=== PATIENT | female | born 1955 | race Caucasian/White ===

== ENCOUNTER 2017-02-19 08:11 | Day surgery (SDC) | payer MEDICARE, OTHER ==
[~2017-02-19] VITALS: Ht 170.2 cm; Wt 61.6 kg
[2017-02-19] VITALS (8 sets, daily range): BP systolic 91–103; BP diastolic 43–69; PULSE 62–92; RESP 15–16; O2SAT 94–98
[~2017-02-19 08:11] MED LIST: AMLO5TAB2 PO; ARIP5TAB5 PO; ASPI-973 PO; BUPR150T9 PO; BUSP10TA2 PO; CARI350T PO; CeFAZolin Inj 2 GM in IV Premix 1 EACH IV SCH; DIAZ2TAB PO; DULO60CA42 PO; HYDR-3825 PO; IBUP200C PO; LABE100T4 PO; LEVO137T24 PO; LOSA50TA37 PO; Lactated Ringer's 1,000 ML IV SCH; OMEP20CA11 PO
[2017-02-19] MEDS ORDERED: Ondansetron 2 mg/mL 2 mL Inj ONE (08:12)
[2017-02-19] MEDS ORDERED: fentaNYL-PF 50 mCg/mL 2 mL Inj ONE (08:12)
[2017-02-19] MEDS ORDERED: EPHEDrine/NS 5 mg/mL 5 mL Syringe ONE (08:12)
[2017-02-19] MEDS ORDERED: Phenylephrine/NS-PF 100 mCg/mL 5 mL Syringe IVPUSH ONE (08:12)
[2017-02-19] MEDS ORDERED: Propofol 10,000 mCg/mL 20 mL Inj ONE (08:12)
[2017-02-19] MEDS ORDERED: MetoCLOpramide 5 mg/mL 2 mL Inj ONE (08:12)
[2017-02-19] MEDS ORDERED: Dexamethasone 4 mg/mL Inj ONE (08:12)
[2017-02-19] MEDS ORDERED: oxyCODONE-Acetamin 5-325 mg Tablet PO PRN (08:25)
[2017-02-19] MEDS ORDERED: Lactated Ringer's 1,000 ML IV ONE (09:31)
[2017-02-19] MEDS ORDERED: Lactated Ringer's 500 ML IV PRN (10:27)
[2017-02-19] MEDS ORDERED: Lactated Ringer's 1,000 ML IV SCH (10:27)
[2017-02-19] MEDS ORDERED: Atropine 0.4 mg/mL Inj IVPUSH PRN (10:30)
[2017-02-19] MEDS ORDERED: Phenylephrine 10,000 mCg/mL Inj IVPUSH PRN (10:30)
[2017-02-19] MEDS ORDERED: Ondansetron 2 mg/mL 2 mL Inj IVPUSH PRN (10:30)
[2017-02-19] MEDS ORDERED: fentaNYL-PF 50 mCg/mL 2 mL Inj IVPUSH PRN (10:30)
[2017-02-19] MEDS ORDERED: HYDROmorphone 1 mg/mL Inj IVPUSH PRN (10:30)
[2017-02-19] MEDS ORDERED: EPHEDrine Sulfate 50 mg/mL Inj IVPUSH PRN (10:30)
[2017-02-19] MEDS ORDERED: MetoCLOpramide 5 mg/mL 2 mL Inj IVPUSH PRN (10:30)
[2017-02-19] MEDS ORDERED: Labetalol 5 mg/mL 4 mL Inj IV PRN (10:30)
--- NOTE | 2017-02-19 10:30 | PCM.HPANE ---
Patient Data Surgeon Admitting Provider: Attending Provider:Luis Felipe Crabtree DO Primary Care Physician:Yamileth Alvares PA-C Other Provider:Gerard Hammonds Anesthesia Reason for Visit Left Shoulder Rotator Cuff Tear Ht/WT & BMI Height (Feet): 5 Height (Inches): 7 Weight (Kilograms): 61.6 Body Mass Index 21.00 Allergies Coded Allergies: No Known Allergies (Verified Allergy, Unknown, 02/16/17) Past Anesthesia History Anesthesia History: Positive for:: Anesthesia Reactions (nausea, vomiting), Denies:: Abnormal Airway, Difficult Intubation, Fam Anesthesia Reaction, Fam Malignant Hypertherm, Malignant Hyperthermia MRSA MRSA: No Medications Blood Thinner: Aspirin Home Meds Incl Beta Jazmine: Yes Reported Medications Diazepam (Valium)2 Mg Tablet2 Mg PO TID PRN For Anxiety 30 Days Ref 0 02/16/17 Levothyroxine (Synthroid)137 Mcg [id number] Mcg PO DAILY Ref 0 02/16/17 Carisoprodol (Soma)350 Mg [id number] Mg PO TID 02/16/17 Omeprazole 20 Mg Capsule.dr20 Mg PO DAILY Ref 0 02/16/17 Losartan Potassium 50 Mg Hwbqxb07 Mg PO BID 02/16/17 Labetalol 100 Mg [id number] Mg PO BID 02/16/17 Ibuprofen 200 Mg [id number] Mg PO QID PRN For Pain Ref 0 02/16/17 Hydrocodone-Acetaminophen 7.5-325 mg 1 Each Tablet1 Tablet PO Q4H PRN For Pain Ref 0 02/16/17 Duloxetine (Cymbalta)60 Mg Capsule.dr60 Mg PO DAILY Ref 0 02/16/17 Buspirone 10 Mg Bryyzz11 Mg PO BID Ref 0 02/16/17 Bupropion HCl (Zyban)150 Mg Tablet.er150 Mg PO BID 02/16/17 Aspirin 81 Mg Oemvlm87 Mg PO DAILY Ref 0 02/16/17 Amlodipine 5 Mg Tablet5 Mg PO DAILY Ref 0 02/16/17 Aripiprazole (Abilify)5 Mg Tablet5 Mg PO DAILY Ref 0 02/16/17 History History of ENT Problems?: No HEENT History: Denies:: Abnormal Airway Cataracts Difficult Intubation Dysphagia Glaucoma Hearing Problem Sinus Problem TMJ Denture Type: None Teeth Condition: Missing Teeth Hx of Heart Problems?: Yes Cardiovascular History: Positive for:: Hypertension Denies:: AICD Abdominal Aortic Aneurism Atrial Fibrillation Cardiac Surgery Chest Pain Congestive Heart Failure Coronary Artery Disease Edema Heart Murmur Irregular Heartbeat Pacemaker Peripheral Vascular Rheumatic Fever Thrombophlebitis Valvular Heart Disease Hx of Respiratory Problem?: No Respiratory History: Denies:: Asthma COPD Chest Surgery Cough Dyspnea Emphysema Hemoptysis Oxygen Administration Pneumonia Pulmonary Embolism Tuberculosis Use of C-PAP Machine Use of Inhalers / NEBS Hx Neurologic Problems?: No Neurological History: Positive for:: Headaches Denies:: Alzheimer's Disease CVA Dementia Dizziness Multiple Sclerosis Parkinson's Disease Peripheral Neuropathy Seizures TIA Hx of GI Problems?: No Gastrointestinal History: Denies:: Cirrhosis Diverticulitis Gall Bladder Disease Gastroesphageal Reflux Gastrointestinal Bleeding Heartburn Hepatitis Hiatal Hernia Liver Disease Rectal Bleeding Hx of Problems?: No Genitourinary History: Denies:: HX of Hemodialysis Kidney Stones Urinary Tract Infection HX of Peritoneal Dialysis: No Other Pertinent History: no right kidney Female Hx: Denies:: Currently Endometriosis Pelvic Inflammatory Problems with Breasts? 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) Denies:: Pressure Ulcers Hx Musculoskeletal Problems?: Yes Musculoskeletal History: Positive for:: Back Injury Degenerative Joint Fibromyalgia Musculoskeletal Trauma Osteoarthritis Denies:: Joint Replacement Myasthenia Gravis Rheumatoid Arthritis Systemic Lupus Hx of Psycho/Social Problems?: Yes Psycho Social History: Positive for:: Anxiety Hx Depression (hx of ptsd) Denies:: Bipolar Disorder Suicide Attempt Hx Surgeries?: Yes (cerivcal, ectopic preg, ankel, l foot, l knee, rotator cuff repair) Hx Any Other Health Problems?: Yes Other History: Positive for:: Thyroid Disease Denies:: Cancer Endocrine Disease Hospitalization History Blood Transfusions: Denies:: Accept Blood Products? Blood Transfuse Reaction Blood Transfusions Hx Diabetes: No Hx Alcohol Use: NoHx Substance Use: Yes (occasional marijuana use) Stop/Bang S-Snoring: Do You Snore Loudly: No T-Tired: feel tired, fatigued: Yes O-Obsered: Observed not breath: No P-Blood Pressure: treated: Yes B- Body Mass Index > 35 kg/m2: No A- Age over 50: Yes N- Neck Large Circumference: No G- Gender Male: No MAHAD Total Score: 3 Risk Assessment Category Category 1A: Patient has history of documented sleep apnea, and HAS NOT received any narcotic, sedative or anesthesia administration during this stay. Category 1B: Patient has history of documented sleep apnea, and HAS received any narcotic , sedative or anesthesia administration during this stay Category 2: Patient has SUSPECTED Obstructive Sleep Apnea, and HAS received any narcotic , sedative or anesthesia administration during this stay. Category 3: Patient has SUSPECTED Obstructive Sleep Apnea and HAS NOT received narcotic, sedative or anesthesia administration during this stay. Category 4: Outpatient in Procedural Areas with known sleep apnea or who screen positive for High Risk via the STOP/BANG questionnaire. Exam Exam Vital Signs Vital Signs Date Time Temp Pulse Resp B/P Pulse Ox O2 Delivery O2 Flow Rate FiO2 02/19/17 08:47 35.9 62 15 99/53 98 Room Air General Appearance: Alert, Oriented X3, Cooperative, Mild Distress (left shoulder pain) HEENT/AIRWAY: MP 2 Lungs: Normal Air Movement Heart: Regular Rate/Rhythm Plan Impression Patient chart reviewed, patient interviewed and anesthestic plan with risks, benefits, and alternatives discussed, and informed consent obtained. NPO per Anesth. Guidelines: Yes ASA Physical Status: ASA2 Mod Systemic Disease Anesthetic Plan: GA, Regional Block (Left interscalene block for postoperative pain control) Bene/Risks/Altern/Consents: Yes HP Complete Prior to Induction: Yes Jim Ledezma MD February 19, 2017 08:56
--- NOTE | 2017-02-19 17:09 | OP ---
[address] [address] OPERATIVE REPORT PATIENT: SAM LUCAS : 1955 MR#: [id number] ADMIT: 02/19/2017 JOB ID: [id number] DATE OF SURGERY: 02/19/2017 PREOPERATIVE DIAGNOSIS(ES): 1. Left shoulder rotator cuff tear. 2. Left shoulder impingement syndrome. 3. Left shoulder labral tear. 4. Left shoulder acromioclavicular arthritis. POSTOPERATIVE DIAGNOSIS(ES): 1. Left shoulder rotator cuff tear. 2. Left shoulder impingement syndrome. 3. Left shoulder labral tear. 4. Left shoulder bicipital tendinopathy. 5. Left shoulder acromioclavicular arthritis. 6. 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 SURGERIES AND PROCEDURES: 1. Left shoulder arthroscopy with rotator cuff repair. 2. Left shoulder arthroscopy, subacromial decompression, acromioplasty. 3. Left shoulder arthroscopy with biceps tenotomy. 4. Left shoulder arthroscopy with distal clavicle excision. 5. Left shoulder arthroscopy with debridement of the humeral head chondromalacia. SURGEON: Luis Felipe Crabtree DO DIRECTOR OF RETAIL ANALYTICS: Jean Claude Cook PA-C The assistance of Jean Claude Cook PA-C was necessary for help with manipulation of the intra-articular equipment, including the camera and for closure at the conclusion of the case. BRIEF HISTORY: The patient is a pleasant, 61-year-old female that has a longstanding history of bilateral shoulder pain. She has had previous rotator cuff tears to both of her shoulders where the left mainly underwent a tlfr-ez-jaan marginal convergence without any utilization of any anchors. The patient had failed previous conservative treatment including therapy and demonstrated with MRI that showed small rotator cuff tears as well as labral tears and bicipital tendinopathy. She also demonstrated clinical signs of persistent impingement as well as a acromioclavicular arthritis. I discussed with the patient, the risks, benefits, indications to proceed with a left shoulder arthroscopy with rotator cuff repair, subacromial decompression, distal clavicle excision and likely biceps tenotomy. The patient had a previous biceps tenotomy to the contralateral side for similar findings and did very well postoperatively. She opted to proceed with a tenotomy versus a tenodesis. The patient had all questions answered. Consent was signed and placed in the chart. PROCEDURE IN DETAIL: The patient was brought to the operative suite and placed supine on the operating room table. Surgical time-out was performed and everyone in the room was in agreement. After appropriate anesthesia was obtained, the patient was placed in the beach chair position with all prominences well padded. Left upper extremity was then prepped and draped in a sterile fashion. The left arm was then placed in the arthroscopic arm bhatia. A posterior viewing portal was developed in typical fashion, the camera introduced in the glenohumeral joint. On gross observation, there was grade 3 chondromalacia to the posterior aspect of the humeral head. There was significant degenerative tearing of the labrum as well as significant tendinopathy to the biceps within the intra-articular space. There was fraying also of the undersurface of the rotator cuff. An anterior portal was then developed in typical fashion, first utilizing a spinal needle to determine the position of the working portal. Working portal was created. A shaver introduced to perform an extensive debridement including of the posterior humeral head chondromalacia as well as the labrum near circumferentially. The biceps was tenotomized with some arthroscopic scissors and a shaver then utilized to debride back the stump down to a stable labral rim. The arthroscopic camera was then brought into the subacromial space. There was significant hypertrophic bursa. A lateral working portal was developed, a shaver introduced and performed extensive bursectomy. This allowed for visualization of the bursal surface of the rotator cuff. A rotator cuff tear was identified that extended into a longitudinal split. Two #2 fiber wires were used as marginal convergence to repair the longitudinal split. This was followed by application of a single Arthrex 4.5 mm corkscrew anchor just lateral to the humeral head at the insertion of the greater tuberosity. The limbs were then passed through the rotator cuff tendon and secured with two sliding knots. A single row repair was obtained and was found to secure the rotator cuff tear in addition to the area of marginal convergence. Attention was then turned toward the undersurface of the acromion. A surface electrocautery wand was used to further delineate the undersurface of the acromion. There was an anterior hook to the anterior aspect of the acromion that was debrided and an acromioplasty performed utilizing a motorized blossom. Attention was then turned towards the distal end of the clavicle through an anterior portal. The bur was used to perform a distal clavicle excision about 8-10 mm in width. The arthroscopic equipment was then removed from the joint. The portals closed with 4-0 nylon. The patient then placed in a bulky dressing and into a shoulder immobilizer. ESTIMATED BLOOD LOSS: Less than 25 cc. COMPLICATIONS: None. DISPOSITION: The patient tolerated the procedure well. Anesthesia was reversed. The patient was transferred to PACU for recovery. POSTOPERATIVE PLAN: The patient will follow up in office in two weeks. We will remove the patient's sutures at that time and have her start with formal physical therapy working mainly on passive range of motion for four additional weeks. She will be in the immobilizer for six weeks prior to initiating any active or active assist range of motion.
--- NOTE | 2017-02-19 18:24 | PCM.ANEP1 ---
Post Anesthesia PACU Phase 1 Assessment Vital Signs Vital Signs Date Time Temp Pulse Resp B/P Pulse Ox O2 Delivery O2 Flow Rate FiO2 02/19/17 13:32 92 16 103/50 95 Room Air 02/19/17 12:53 70 16 103/43 96 Room Air 02/19/17 12:45 72 16 94/57 94 Room Air 02/19/17 12:30 36 70 16 97/69 95 Room Air 02/19/17 12:25 67 16 94/46 95 Room Air 02/19/17 12:20 70 16 91/45 95 Room Air 02/19/17 12:18 37.0 72 16 92/52 96 Room Air Anesthetic Administered: GA, Regional Block Level of Alertness: Awake, talking NANCE's with Equal Strength: Yes (except for distribution of block) Pain: No Nausea or Vomiting: No CV Function & Hydration Stable: No Airway Device: Oxygen Delivery: Room Air Lungs: Normal Air Movement Dermatome Level: Full Sensation PACU Phase 2 Assessment Complications: No Follow up Care: N/A Patient Instructions Provided: N/A Jim Ledezma MD February 19, 2017 18:24
== END 2017-02-19 23:59 | disposition home or self-care (01) ==
LOC: SAS 08:11
PROVIDERS: ATTEND Orthopaedic Surgery
DX: M75.122 Complete rotator cuff tear or rupture of left shoulder, not specified as traumatic (principal); M75.42 Impingement syndrome of left shoulder; S43.432A Superior glenoid labrum lesion of left shoulder, initial encounter; M67.912 Unspecified disorder of synovium and tendon, left shoulder; M19.012 Primary osteoarthritis, left shoulder; M94.212 Chondromalacia, left shoulder; I10 Essential (primary) hypertension; E03.9 Hypothyroidism, unspecified; M54.12 Radiculopathy, cervical region; M79.7 Fibromyalgia; M19.90 Unspecified osteoarthritis, unspecified site; G89.4 Chronic pain syndrome; Q79.6 Ehlers-Danlos syndromes; F43.10 Post-traumatic stress disorder, unspecified; F12.90 Cannabis use, unspecified, uncomplicated; Z79.82 Long term (current) use of aspirin
CPT/HCPCS: 29823; 29824; 29826; 29827; 76942; C1713; J1100; J1885; J2250; J2370; J2405; J2765; J3010; J7120